=== PATIENT | female | born 1975 | race Two or more races ===

== ENCOUNTER 2024-01-20 20:58 | Emergency (ER) | payer OTHER ==
[~2024-01-20] VITALS: Ht 154.9 cm; Wt 58.1 kg
[2024-01-20] MEDS ORDERED: DIPHENHYDRAMINE HCL 50 MG/ML VIAL 1ML IM ONE (22:15)
[2024-01-20] MEDS ORDERED: CEFTRIAXONE SODIUM 1,000 MG VIAL IM ONE (22:15)
[2024-01-20] MEDS ORDERED: METHYLPREDNISOLONE SOD SUCC 40 MG VIAL IM ONE (22:15)
[2024-01-20] MEDS ORDERED: PEPCID AC20 MG PO (22:22)
[2024-01-20] MEDS ORDERED: MEDROLPACK PO (22:22)
[2024-01-20] MEDS ORDERED: CLEOCIN HCL150 MG PO (22:22)
[2024-01-20] MEDS ORDERED: CLINDAMYCIN PHO40 GM VAG (22:22)
== END 2024-01-20 22:37 | disposition home or self-care (01) ==
LOC: ER 21:00
DX: L08.9 Local infection of the skin and subcutaneous tissue, unspecified (principal); Z87.09 Personal history of other diseases of the respiratory system